=== PATIENT | male | born 1990 | race Caucasian/White ===

== ENCOUNTER 2018-10-01 10:28 | Outpatient (CLI) | payer OTHER ==
--- NOTE | 2018-10-01 12:08 | MRI ---
EXAM: Right knee MRI without contrast: HISTORY: S 86.911D Right knee strain Injury COMPARISON: None FINDINGS: Multiplanar, multisequence MRI examination of the knees performed. No evidence for significant joint effusion. No evidence for significant articular cartilage loss Medial meniscus: Irregular complex bucket-handle tear medial meniscus. Lateral meniscus: Unremarkable. Anterior cruciate ligament:Intact. Posterior cruciate ligament: Intact. Medial collateral ligament complex: Intact. Lateral collateral ligament complex: Intact. Quadriceps and patellar tendons: Intact. Extensor mechanism: Unremarkable. No evidence for acute osteochondral defect or abnormal marrow signal. IMPRESSION: Bucket-handle tear medial meniscus.
== END 2018-10-01 10:29 | disposition home or self-care (01) ==
LOC: BICMRI 10:28
PROVIDERS: ATTEND Family Medicine
DX: S86.911D Strain of unspecified muscle(s) and tendon(s) at lower leg level, right leg, subsequent encounter (principal); S83.211D Bucket-handle tear of medial meniscus, current injury, right knee, subsequent encounter

== ENCOUNTER 2019-03-04 07:53 | Outpatient (CLI) | payer OTHER ==
[2019-03-04 10:32] LABS: #Eosinphils 0.2 thou/uL (0.0-0.7); #Lymphocytes 2.3 thou/uL (1.20-3.40); #Monocytes 0.5 thou/uL (0.11-0.59); #Neutrophils 4.3 thou/uL (1.40-6.50); %Basophils 0.3 % (0.0-1.0); %Lymphocytes 31.3 % (21.0-51.0); %Monocytes 7.3 % (0.0-10.0); %Neutrophils 58.1 % (42.0-75.0); Hemoglobin 14.4 g/dL (14.0-18.0); Mean Corpuscular HGB CONC 34.3 g/dL (32.0-36.0); Mean Corpuscular Hemoglobin 28.9 pg (27.0-31.0); Mean Corpuscular Volume 84.2 fL (78.0-98.0); Mean Platelet Volume 7.8 fL (7.4-10.4); Platelet Count 240 thou/uL (130-400); RBC Distribution Width 12.2 % (11.5-14.5); Red Blood Cell (RBC) Count 4.98 mill/uL (4.70-6.10); White Blood Cell (WBC) Count 7.3 thou/uL (4.8-10.8)
[2019-03-04 10:46] LABS: Anion Gap 12 mmol/L (10-20); BUN (Urea Nitrogen) 15 mg/dL (8.9-20.6); Calc. Creatinine Clearance 0 mL/min (70-130); Carbon Dioxide 22 mmol/L (22-29); Chloride 108 mmol/L (98-107); Estimated GFR-MDRD 82; Glucose 79 mg/dL (70-105); Sodium 138 mmol/L (136-145)
--- NOTE | 2019-03-04 16:47 | EKG ---
Test Reason : Blood Pressure : / mmHG Vent. Rate : 060 BPM Atrial Rate : 060 BPM P-R Int : 128 ms QRS Dur : 088 ms QT Int : 400 ms P-R-T Axes : 039 079 038 degrees QTc Int : 400 ms Normal sinus rhythm with sinus arrhythmia Normal ECG When compared with ECG of 16-SEP-2010 07:29, No significant change was found Confirmed by DR. Jigna ELLSWORTH ([id number]) on 03/04/2019 4:47:04 PM Referred By: LEANDER Confirmed By:DR. Jigna ELLSWORTH
== END 2019-03-04 07:54 | disposition home or self-care (01) ==
LOC: LABBT 07:53
PROVIDERS: ATTEND Orthopaedic Surgery
DX: Z01.818 Encounter for other preprocedural examination (principal); S83.211A Bucket-handle tear of medial meniscus, current injury, right knee, initial encounter
CPT/HCPCS: 80048; 85025; 93005; 93010

== ENCOUNTER 2019-03-17 05:41 | Day surgery (SDC) | payer OTHER ==
[2019-03-04 08:59] VITALS: BMI 35.9
--- NOTE | 2019-03-16 08:38 | HP ---
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 He felt a pop and had immediate pain and swelling. He has improved, but has continued to have intermittent pain and popping despite restriction of activities and anti-inflammatory medications. PAST MEDICAL HISTORY: The patient is otherwise in good health. He has a history of hypertension. He has no other major medical problems. CURRENT MEDICATIONS: Include 1. Lisinopril. 2. Fenofibrate. 3. Hydrochlorothiazide. FAMILY HISTORY: Otherwise unremarkable. SOCIAL HISTORY: Otherwise unremarkable. REVIEW OF SYSTEMS: Otherwise unremarkable. PHYSICAL EXAMINATION: GENERAL: This is a healthy male. HEENT: Unremarkable. NECK: Supple. CHEST: Clear. HEART: Regular rate and rhythm. ABDOMEN: Soft, nontender. RECTAL: Deferred. GENITAL: Deferred. EXTREMITIES: Pertinent findings with the right knee. There is no definite effusion. There is normal alignment. There is tenderness over the medial joint line and slight crepitus with Hugo maneuver. Range of motion is 0 to 130 degrees. There is pain with further flexion. Neurovascular exam is intact. No instability. There is no pain with range of motion of the right hip. DIAGNOSTIC STUDIES: X-rays of the right knee performed in August of 2018 are normal. MRI scan of the right knee done on 10/01/2018 reveals a displaced bucket-handle tear of the medial meniscus. IMPRESSION: Internal derangement of right knee with bucket-handle tear of medial meniscus. PLAN: Arthroscopy of right knee with partial medial meniscectomy and/or debridement and shaving. The nature of the surgery, length of recovery, and potential complications such as infection, loss of motion, incomplete relief, neurovascular injury, thromboembolic phenomena, posttraumatic degenerative arthritis, recurrent tear, need for additional treatment and repeat surgery have been discussed in detail. Job ID: [id number]
[2019-03-17] MEDS ORDERED: Bupivacaine PF 0.5% 30 ML VIAL ONE (07:02)
[2019-03-17] MEDS ORDERED: Lidocaine 1% w/Epinephrine 1:100K 20 ML VIAL ONE (07:02)
[2019-03-17] MEDS ORDERED: Clindamycin/D5W 900 mg/50 ml Premix Bag ONE (07:13)
[2019-03-17] MEDS ORDERED: Fentanyl 100 MCG/2 ML VIAL ONE (08:04)
[2019-03-17] MEDS ORDERED: Ketorolac Tromethamine 30 MG/ML VIAL ONE (09:31)
[2019-03-17] MEDS ORDERED: Lidocaine 1% PF 5 ML VIAL ONE (09:31)
[2019-03-17] MEDS ORDERED: PROPOFOL 200 MG/20 ML VIAL ONE (09:31)
--- NOTE | 2019-03-17 09:36 | OP ---
DATE OF PROCEDURE: 03/17/2019 ANESTHESIA: General. PREOPERATIVE DIAGNOSIS: Medial meniscal tear, right knee. POSTOPERATIVE DIAGNOSIS: Medial meniscal tear, right knee. PROCEDURE PERFORMED: Arthroscopy right knee with partial medial meniscectomy. OPERATIVE FINDINGS: Examination under anesthesia revealed the knee to be stable. At arthroscopy, there was a displaced bucket-handle tear of the medial meniscus involving approximately 50% of the meniscus. There was minimal degenerative changes on the weightbearing surface of the medial femoral condyle. ACL was intact. Patellofemoral joint was normal and lateral meniscus and lateral compartment were normal. DESCRIPTION OF PROCEDURE: After satisfactory anesthesia was induced in supine position, the patient was placed in a leg ratliff and prepped and draped in routine manner. The right leg was elevated and exsanguinated with an Esmarch bandage and the tourniquet inflated to 300 mmHg. [employer] arthroscope was introduced through an anterolateral portal, probed through an anteromedial portal and inflow and outflow accomplished through the scope using a [employer] arthroscopy pump. Arthroscopy was carried out and the above findings were noted. All findings were documented with video printer and hard copies were made. The anterior horn attachment of the bucket-handle tear of the medial meniscus was attached with meniscal scissors. The scope was then switched to the anterior medial portal and the meniscal fragment grasped through the anterolateral portal. The posterior horn attachment was then attached with meniscal scissors introduced through a central transpatellar tendon portal and then extracted after slightly enlarging the anterolateral portal. The scope was then reintroduced into the anterolateral portal and anterior and posterior meniscal tags were debrided with the motorized shaver. The remaining rim of the meniscus was probed and found to be stable. The knee was then copiously irrigated through the scope and all instruments were withdrawn. A 50% mixture of 30 mL of 0.5% Marcaine and 20 mL of 1% lidocaine with epinephrine was instilled into the knee joint and additional 20 mL injected about the portal sites. The portal sites were closed with 3-0 nylon and a sterile bulky compressive dressing was applied and the tourniquet was deflated after 30 minutes. The foot promptly pinked up and the patient was awakened and taken to the recovery room in stable condition. There were no apparent intraoperative complications. The estimated blood loss was negligible. The patient will be discharged home in satisfactory condition, instructed on ice, elevation, use of crutches, home exercise program. He was given written wound care instructions and a prescription for [place] 7.5 for pain, 20 tablets. He will be rechecked in my office in 10 to 14 days or sooner if there are any problems prior to that time. Job ID: [id number]
== END 2019-03-17 11:10 | disposition home or self-care (01) ==
LOC: SDC 05:41
PROVIDERS: ATTEND Orthopaedic Surgery
PROC: 0SBC4ZZ Excision of Right Knee Joint, Percutaneous Endoscopic Approach (ICD-10-PCS; principal; 2019-03-17)
DX: S83.211A Bucket-handle tear of medial meniscus, current injury, right knee, initial encounter (principal); I10 Essential (primary) hypertension; Z87.891 Personal history of nicotine dependence; Z79.899 Other long term (current) drug therapy; Z88.0 Allergy status to penicillin; X50.0XXA Overexertion from strenuous movement or load, initial encounter; Y99.0 Civilian activity done for income or pay
CPT/HCPCS: J1885; J2001; J2704; J3010; J3490; S0020